=== PATIENT | female | born 2005 | race Caucasian/White ===

== ENCOUNTER 2025-01-26 14:32 | Outpatient (AMB) | payer MEDICAID, SELFPAY ==
--- NOTE | 2025-01-26 14:47 | OBCLNT_ITS ---
Vital Signs 01/26/25 15:05 Height 1.63 m Height Method Stated Weight 88.677 kg Weight Measurement Method Standing Scale BMI 33.5 BP 112/73 Blood Pressure Source Automatic Cuff Blood Pressure Location Left Upper Arm Position Sitting Respiration 16 Pulse 79 Pulse Source Monitor Temp 98.1 F Temp Source Oral Pulse Oximetry (%) 98 Oxygen Delivery Method Room Air Allergies/Home Meds Allergies & Medications Allergies No Known Allergies Allergy (Verified 01/26/25 15:06) Medication Reconciliation vits no.126-ferrous fum 28 mg iron-folic acid 800 mcg tablet (Classic ) 1 tab PO DAILY 90 days #90 tabs 01/26/25 [Rx] Intake Visit Data Collection New Patient or Established: Established Patient (seen at [facility] within 3 years) Reason for Visit:: INITIAL CARE Seen by Clinical Staff ONLY (RN/MA): No 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 Pipe Out Worker's name/title: ANT ROSSI Do You Feel Safe at Home: Yes Authorities Contacted: N/A PCP or OBGYN visit in last 3 months: Yes Hx Now: Yes Are you currently on any form of Control: No Last menstrual period: 07/02/24 Pain Present Currently: No Pain Scale Used: Tony-Carter/Numerical Pain scale:: 0 Smoking Status Smoking Status: Never smoker Immunizations Flu Vaccine in the Last 12 Months: No Flu Vaccine Exclusion Criteria: No Exclusion Criteria Questionnaires Covid-19 Vaccine Questionnaire Has patient been vacinated for Covid-19 Have you been vacinated for Covid-19: Yes PHQ-9 PHQ-2 Over the last 2 weeks, how often have you been bothered by any of the following problems? 1. Little interest or pleasure in doing things: not at all 2. Feeling down, depressed, or hopeless: not at all Total score: 0 PHQ-9 3. Trouble falling or staying asleep, or sleeping too much: Not at all 4. Feeling tired or having little energy: Not at all 5. Poor appetite or overeating: Not at all 6. Feeling bad about yourself - or that you are a failure or have let yourself or your family down: Not at all 7. Trouble concentrating on things, such as reading the newspaper or watching television: Not at all 8. Moving or speaking so slowly that other people could have noticed? - Or the opposite - being so fidgety or restless that you have been moving around a lot more than usual: not at all 9. Thoughts that you would be better off or of hurting yourself in some way: Not at all Total score: 0 Source: Developed by Drs. Armando Colon, Maryam Rosen, Ha Hogue and colleagues, with an educational faiza from [employer]. Depression screen completed yes Social History Living Situation History Marital Status: Life Partner Lives With: Family Housing: House Tobacco History Smoking Status: Never smoker Second Hand Smoke Exposure: No Alcohol History Alcohol Intake: Never Domestic Abuse History Do You Feel Safe at Home: Yes OB Initial Visit OB Flowsheet OB Flowsheet Initial Weight: Not Recorded Date -?-?-?-?-?-?-?-?-?-?-?-?- EGA Weight BP Alb Glu CTX Pres Fundal ht FHR Mov Dilation Station Effacement Hx Notes Visit Note 01/26/25 -?-?-?-?-?-?-?-?-?-?-?-?- 30w 0d 88.677 kg 112/73 absent unknown 29 147 active Menstrual History Menstrual reliability: definite Flow: normal Menstrual regularity: regular Monthly: Yes Age at menarche: 10 On control pills at conception: No Associated symptoms (LMP): Reports nausea OB History : 1 # of Living Children: 0 Infection History & Risk Evaluation History of STDs: none Genetic Screening & History Genetic Screening/Teratology Counseling - Includes patient, baby's father, or anyone in either family with: 1. Patient's age 35 years or older as of estimated date of delivery: No 2. Thalassemia (Japanese, Tunisian, Mediterranean, or Background); MCV less than 80: No 3. Neural Tube Defect (Meningomyelocele, Spina Bifida, or Anencephaly): No 4. Congenital Heart Defect: No 5. Down Syndrome: No 6. [place]-Sachs (Ashkenazi Zoroastrianism, Cajun, Vietnamese [place]): No 7. Rosalio Disease (Ashkenazi Zoroastrianism): No 8. Familial Dysautonomia (Ashkenazi Zoroastrianism): No 9. Sickle Cell Disease or Trait (): No 10. Hemophilia or other blood disorders: No 11. Muscular Dystrophy: No 12. Cystic Fibrosis: No 13. Nitesh's Chorea: No 14. Mental Retardation/Autism: No 15. Other inherited genetic or chromosomal disorder: No 16. Maternal Metabolic Disorder (EG,TYPE 1 Diabetes, PKU): No 17. Patient or baby's father had a child with defects not listed above: No 18. Recurrent loss or a stillbirth: No 19. Medications (including supplements, vitamins, herbs or otc drugs)/illicit/recreational drugs/alcohol since last menstrual period: No 20. Any other: No Infection History 1. Live with someone with TB or exposed to TB: No 2. Rash or viral illness since last menstrual period: No 3. Hepatitis B,C: No Other (see comments) Source: [employer] Review of Systems Review of Systems Systems Reviewed: All systems reviewed, normal except as documented Gastrointestinal Gastrointestinal: Reports nausea Exam Narrative Physical exam: Alert and oriented x 3 no shortness of breath Pain no chest pain no palpitations Chest clear bilaterally no additional sounds, no wheezing no rales CVS regular rate and rhythm No CVAT Abdomen nontender, normal bowel sounds No guarding no rigidity No hernias Results Objective Laboratory: A positive on 12/18/2024 RPR negative /HbsAg negative GC and CT negative Rubella immune CF negative TSH wnl One hor GTT is normal Hb is 11.1 Imaging: ordered Ob US > 14 weeks Office Procedures OBC Clinic LOC & Office Proc's Nursing/Assessment Patient Status: Initial/New Patient OB Clinic Nursing Assessment: Medication Reconciliation, Update PMH in EMR and Vital Signs OB Clinic Coordination of Care: Complex Care and Chronic Disease 1-5, Consent,records obtained, informed consent, Education Simp Pt/Fam, 1 Ins Authorization, Lab and Imaging orders, Results/Orders obtained and Staff clarify orders Special Needs: Heart tones New Patient Charge New Patient Point Assignment: [id number] New Patient Point Charge: PAINT SUPERVISOR Level 4 ([id number]) Assessment & Plan Diagnosis / Problem List (1) : Status: Acute Qualifiers: Weeks of gestation: 30 weeks Qualified Code(s): Z3A.30 - 30 weeks ge station of (2) Insufficient care: Status: Acute Qualifiers: Trimester: unspecified trimester Qualified Code(s): O09.30 - Supervision of with insufficient care, unspecified trimester Plan Ob Us ordered . genetic screen and carrier testing ordered and follow up in 2 weeks /PNV ordered . kick count and labor precations given
[2025-01-26 15:05] VITALS: BP 112/73; PULSE 79; RESP 16; TEMP 36.7; O2SAT 98; BMI 33.5
== END 2025-01-26 15:28 | disposition home or self-care (01) ==
LOC: HODSOBC 14:32
PROVIDERS: PCP Nurse Practitioner; Referring Provider Nurse Practitioner; Supervising Provider Obstetrics & Gynecology; Visit Provider Obstetrics & Gynecology
DX: O09.33 Supervision of pregnancy with insufficient antenatal care, third trimester (principal); Z3A.30 30 weeks gestation of pregnancy
CPT/HCPCS: 99204; G0463

== ENCOUNTER 2025-02-05 12:15 | Observation (INO) | payer MEDICAID, SELFPAY ==
[2025-02-05] VITALS (21 sets, daily range): BP systolic 111; BP diastolic 74; PULSE 70–93; RESP 18–99; TEMP 36.7; O2SAT 98–100; BMI 33.7
--- NOTE | 2025-02-05 13:11 | XR_ITS ---
Examination: Complete OB ultrasound greater than 14 weeks Date and time of exam: February 05, 2025, 1417 hours INDICATIONS: Onset vaginal bleeding today Findings: Viable intrauterine single fetus with single amniotic sac presentation cephalic Cardiac motion 144 bpm Placenta anterior grade 1 no placental abruption Umbilical cord insertion seen Amniotic fluid index 9.2 cm Cervix 2.8 cm close Right ovary obscured by bowel gas Left ovary 2.7 cm arterial flow. Composite estimated gestational age based on BPD, head circumference, abdominal circumference, femur length is 29 weeks 5 days Estimated weight 1410 g. Survey of intracranial anatomy, spinal anatomy, abdominal anatomy, four-chamber heart performed with no abnormalities identified. Impression: Viable intrauterine gestation in cephalic presentation Placenta anterior grade 1 no abruption.
== END 2025-02-05 15:30 | disposition home or self-care (01) ==
PROVIDERS: Admitting Provider Obstetrics & Gynecology; Visit Provider Obstetrics & Gynecology
DX: O46.93 Antepartum hemorrhage, unspecified, third trimester (principal); O99.891 Other specified diseases and conditions complicating pregnancy; M54.9 Dorsalgia, unspecified; Z3A.29 29 weeks gestation of pregnancy
CPT/HCPCS: 59025; 59899; 76805

== ENCOUNTER 2025-02-26 13:37 | Outpatient (AMB) | payer MEDICAID, SELFPAY ==
[2025-02-26 14:41] VITALS: BP 103/83; PULSE 91; RESP 18; TEMP 36.2; O2SAT 98
--- NOTE | 2025-02-26 14:41 | OBCLNT_ITS ---
Vital Signs 02/26/25 14:41 Weight 90.492 kg Weight Measurement Method Standing Scale BP 103/83 Blood Pressure Source Automatic Cuff Blood Pressure Location Left Upper Arm Position Sitting Respiration 18 Pulse 91 Pulse Source Monitor Temp 97.2 F Temp Source Oral Pulse Oximetry (%) 98 Oxygen Delivery Method Room Air Allergies/Home Meds Allergies & Medications Allergies No Known Allergies Allergy (Verified 02/26/25 14:42) Medication Reconciliation vits no.126-ferrous fum 28 mg iron-folic acid 800 mcg tablet (Classic ) 1 tab PO DAILY 90 days #90 tabs 01/26/25 [Rx Confirmed 02/26/25] acetaminophen 500 mg tablet mg 02/05/25 [History Confirmed 02/26/25] Held on 02/05/25. Instructions: HOLD folic acid 1 mg tablet 1 mg PO QDAY 02/05/25 [History Confirmed 02/26/25] Immunizations Immunizations Flu Vaccine in the Last 12 Months: No Flu Vaccine Exclusion Criteria: No Exclusion Criteria Care OB Visit Log OB Flowsheet Initial Weight: Not Recorded Date -?-?-?-?-?-?-?-?-?-?-?-?- EGA Weight BP Alb Glu CTX Pres Fundal ht FHR Mov Dilation Station Effacement Hx Notes Visit Note 01/26/25 -?-?-?-?-?-?-?-?-?-?-?-?- 30w 0d 88.677 kg 112/73 absent unknown 29 147 active 02/26/25 -?-?-?-?-?-?-?-?-?-?-?-?- 34w 3d 90.492 kg 103/83 absent cephalic 34 144 active JIM Calculator Estimated Delivery Date Method Current WG Current Estimate 04/06/25 LMP (Certain) 34w 5d Notes Visit Date: 02/26/25 Last Updated by: Miya Cantu MD labs done in December 21/2025 c/w GTT screen and CBC are normal /On exam she is 29 cm and normal ob exam She was in [facility] 3 weeks ago with bleeding / would like to start disability / approved disability /NIPT c/w female gender and negative / disability from 02/27/2025 and return to work from 05/23/2025 flu vaccine today/ R/B and options discussed with patient / would like to proceed Visit Date: 01/26/25 Last Updated by: Miya Cantu MD 19 years old from [facility] at 30 weeks today based on LMP of 06/30/2024 she had an US in [place] and no report available , sounds like done for gender reveal labs done in December 21/2025 c/w GTT screen and CBC are normal /On exam she is 29 cm and normal ob exam plan to order NIPT and carrier screen and US vitamins called in educated on vaccines recommend Flu and T dap kick count and follow up in 2 weeks she is A positive and RPR negative and HbsAg negative HIV negative / Rubella immune CF screen negative GC and CT negative Plan NIPT/RPR / SMA carrier screen / gender chromosomal analysis Too Late for AFP order pills follow up in 2 weeks Office Procedures OBC Clinic LOC & Office Proc's Nursing/Assessment Patient Status: Established Patient OB Clinic Nursing Assessment: Medication Reconciliation, Update PMH in EMR and Vital Signs OB Clinic Coordination of Care: Consent,records obtained, informed consent, Education Simp Pt/Fam, Lab and Imaging orders, Results/Orders obtained and Staff clarify orders Special Needs: Heart tones Established Patient Charge Established Patient Point Assignment: 110 Established Patient Point Charge: EP Level 3 (80-115) Immunizations flu vac ts (6mos up)-PF 45 mcg(15mcg x3)/0.5 mL IM syringe Performing Provider: Miya Cantu MD Performing Location: [facility] OFFICER Clinic Administered by: Wendy Avila MA on 02/26/25 15:52 Dose Route Admin Location Dispensed Lot Number Expiration Date Pack age [facility] Accounting Representative 0.5 mL IM Left Deltoid 0.5 mL [id number] 10/05/25 [id number] appiris VIS Given Date VIS Provided VIS Publication Date 02/26/25 Single Vaccine 24 Eligibility Eligibility Date Funding Source Public Non-[facility] Assessment & Plan Diagnosis / Problem List (1) Antepartum bleeding: Status: Acute Assessment and Plan: start disability from 02/27/2025 (2) Insufficient care: Status: Acute Qualifiers: Trimester: unspecified trimester Qualified Code(s): O09.30 - Supervision of with insufficient care, unspecified trimester Assessment and Plan: Flu vaccine today (3) : Status: Acute Qualifiers: Weeks of gestation: 30 weeks Qualified Code(s): Z3A.30 - 30 weeks gestation of Plan: follow up in [address] [facility] [address] [place] [address] [place] [facility] Report Signed Patient: TRISTEN RICHARDS Record#: [id number] Birthdate: 2005 Age/Sex: 19 / F Location: [facility] [id number] Attending Dr: Deonte Bernal MD Ordering Physician: Deonte Bernal MD Date of Service: 02/05/25 Procedure(s): US OB >= 14 weeks Fetus Accession Number(s): [id number] cc: Daren Gonzales MD; Deonte Bernal MD; NO PRIMARY/FAMILY,PHYSICIAN~ Examination: Complete OB ultrasound greater than 14 weeks Date and time of exam: February 05, 2025, 1417 hours INDICATIONS: Onset vaginal bleeding today Findings: Viable intrauterine single fetus with single amniotic sac presentation cephalic Cardiac motion 144 bpm Placenta anterior grade 1 no placental abruption Umbilical cord insertion seen Amniotic fluid index 9.2 cm Cervix 2.8 cm close Right ovary obscured by bowel gas Left ovary 2.7 cm arterial flow. Composite estimated gestational age based on BPD, head circumference, abdominal circumference, femur length is 29 weeks 5 days Estimated weight 1410 g. Survey of intracranial anatomy, spinal anatomy, abdominal anatomy, four-chamber heart performed with no abnormalities identified. Impression: Viable intrauterine gestation in cephalic presentation Placenta anterior grade 1 no abruption. Additional Plan labs done in December 21/2025 c/w GTT screen and CBC are normal /On exam she is 29 cm and normal ob exam She was in [facility] 3 weeks ago with bleeding / would like to start disability / approved disability /NIPT c/w female gender and negative / disability from 02/27/2025 and return to work from 05/23/2025 flu vaccine today/ R/B and options discussed with patient / would like to proceed 19 years old at 34.3 weeks today Follow Up: 2 Weeks
== END 2025-02-26 15:33 | disposition home or self-care (01) ==
LOC: HODSOBC 13:37
PROVIDERS: Supervising Provider Obstetrics & Gynecology; Visit Provider Obstetrics & Gynecology
DX: O09.893 Supervision of other high risk pregnancies, third trimester (principal); O46.93 Antepartum hemorrhage, unspecified, third trimester; O09.33 Supervision of pregnancy with insufficient antenatal care, third trimester; Z3A.34 34 weeks gestation of pregnancy; Z23 Encounter for immunization
CPT/HCPCS: 90471; 90686; 99213; G0463; J9060

== ENCOUNTER 2025-03-16 09:42 | Outpatient (AMB) | payer MEDICAID, SELFPAY ==
--- NOTE | 2025-03-16 09:52 | AMB.OBPNC ---
Vital Signs 03/16/25 09:53 Height 1.63 m Height Method Stated Weight 93.157 kg Weight Measurement Method Standing Scale BMI 35.0 BP 124/73 Blood Pressure Source Automatic Cuff Blood Pressure Location Right Upper Arm Position Sitting Respiration 18 Pulse 82 Pulse Source Monitor Temp 97.8 F Temp Source Temporal Artery Scan Pulse Oximetry (%) 98 Oxygen Delivery Method Room Air Allergies/Home Meds Allergies & Medications Allergies No Known Allergies Allergy (Verified 03/16/25 09:53) Medication Reconciliation vits no.126-ferrous fum 28 mg iron-folic acid 800 mcg tablet (Classic ) 1 tab PO DAILY 90 days #90 tabs 01/26/25 [Rx Confirmed 03/16/25] acetaminophen 500 mg tablet mg 02/05/25 [History Confirmed 03/16/25] Held on 02/05/25. Instructions: HOLD folic acid 1 mg tablet 1 mg PO QDAY 02/05/25 [History Confirmed 03/16/25] Immunizations Immunizations Flu Vaccine in the Last 12 Months: Yes Flu Vaccine Exclusion Criteria: Already Received Care OB Visit Log OB Flowsheet Initial Weight: Not Recorded Date <del>?</del> EGA Weight BP Alb Glu CTX Pres Fundal ht FHR Mov Dilation Station Effacement Hx Notes Visit Note 01/26/25 <del>?</del> 30w 0d 88.677 kg 112/73 absent unknown 29 147 active 02/26/25 <del>?</del> 34w 3d 90.492 kg 103/83 absent cephalic 34 144 active 03/16/25 <del>?</del> 37w 0d 93.157 kg 124/73 absent cephalic 37 144 active 0 -2 30 JIM Calculator Estimated Delivery Date Method Current WG Current Estimate 04/06/25 LMP (Certain) 38w 2d Notes Visit Date: 03/16/25 Last Updated by: Miya Cantu MD GBS today / labor precautions and follow up in 1 week Visit Date: 02/26/25 Last Updated by: Miya Cantu MD labs done in December 21/2025 c/w GTT screen and CBC are normal /On exam she is 29 cm and normal ob exam She was in [facility] 3 weeks ago with bleeding / would like to start disability / approved disability /NIPT c/w female gender and negative / disability from 02/27/2025 and return to work from 05/23/2025 flu vaccine today/ R/B and options discussed with patient / would like to proceed Visit Date: 01/26/25 Last Updated by: Miya Cantu MD 19 years old from [facility] at 30 weeks today based on LMP of 06/30/2024 she had an US in [place] and no report available , sounds like done for gender reveal labs done in December 21/2025 c/w GTT screen and CBC are normal /On exam she is 29 cm and normal ob exam plan to order NIPT and carrier screen and US vitamins called in educated on vaccines recommend Flu and T dap kick count and follow up in 2 weeks she is A positive and RPR negative and HbsAg negative HIV negative / Rubella immune CF screen negative GC and CT negative Plan NIPT/RPR / SMA carrier screen / gender chromosomal analysis Too Late for AFP order pills follow up in 2 weeks Office Procedures OBC Clinic LOC & Office Proc's Nursing/Assessment Patient Status: Established Patient OB Clinic Nursing Assessment: Medication Reconciliation, Update PMH in EMR and Vital Signs OB Clinic Coordination of Care: Complex Care and Chronic Disease 1-5, Education Complex Pt/Fam, Consent,records obtained, informed consent, Lab and Imaging orders, Results/Orders obtained and Staff clarify orders Special Needs: Heart tones Miscellaneous Interventions: Culture Specimen Collection Established Patient Charge Established Patient Point Assignment: 155 Established Patient Point Charge: EP Level 4 (120-155) Assessment & Plan Diagnosis / Problem List (1) Insufficient care: Status: Acute Qualifiers: Trimester: unspecified trimester Qualified Code(s): O09.30 - Supervision of with insufficient care, unspecified trimester (2) : Status: Acute Qualifiers: Weeks of gestation: 30 weeks Qualified Code(s): Z3A.30 - 30 weeks gestation of Plan: 37 weeks (3) Antepartum bleeding: Status: Acute Plan: no more Additional Assessment GBS done Additional Plan 1 week Follow Up: 1 Week
[2025-03-16 09:53] VITALS: BP 124/73; PULSE 82; RESP 18; TEMP 36.6; O2SAT 98; BMI 35.0
== END 2025-03-16 10:59 | disposition home or self-care (01) ==
LOC: HODSOBC 09:42
PROVIDERS: Supervising Provider Obstetrics & Gynecology; Visit Provider Obstetrics & Gynecology
DX: O09.33 Supervision of pregnancy with insufficient antenatal care, third trimester (principal); O09.893 Supervision of other high risk pregnancies, third trimester; O46.93 Antepartum hemorrhage, unspecified, third trimester; Z36.85 Encounter for antenatal screening for Streptococcus B; Z3A.37 37 weeks gestation of pregnancy
CPT/HCPCS: 99214; G0463

== ENCOUNTER 2025-04-06 09:56 | Outpatient (AMB) | payer MEDICAID, SELFPAY ==
[2025-04-06 10:29] VITALS: BP 119/78; PULSE 79; RESP 16; TEMP 36.6; O2SAT 98; BMI 35.9
--- NOTE | 2025-04-06 10:29 | OBCLNT_ITS ---
Vital Signs 04/06/25 10:29 Height 1.63 m Height Method Stated Weight 95.368 kg Weight Measurement Method Standing Scale BMI 35.9 BP 119/78 Blood Pressure Source Automatic Cuff Blood Pressure Location Left Upper Arm Position Sitting Respiration 16 Pulse 79 Pulse Source Monitor Temp 97.9 F Temp Source Oral Pulse Oximetry (%) 98 Oxygen Delivery Method Room Air Allergies/Home Meds Allergies & Medications Allergies No Known Allergies Allergy (Verified 04/06/25 10:30) Medication Reconciliation vits no.126-ferrous fum 28 mg iron-folic acid 800 mcg tablet (Classic ) 1 tab PO DAILY 90 days #90 tabs 01/26/25 [Rx Confirmed 04/06/25] folic acid 1 mg tablet 1 mg PO QDAY 02/05/25 [History Confirmed 04/06/25] Immunizations Immunizations Flu Vaccine in the Last 12 Months: Yes Date of most recent flu vaccination: 02/26/25 Flu Vaccine Exclusion Criteria: Already Received Care OB Visit Log OB Flowsheet Initial Weight: Not Recorded Date -?-?-?-?-?-?-?-?-?-?-?-?- EGA Weight BP Alb Glu CTX Pres Fundal ht FHR Mov Dilation Station Effacement Hx Notes Visit Note 01/26/25 -?-?-?-?-?-?-?-?-?--?-?-?- 28w 2d 88.677 kg 112/73 absent unknown 29 147 active 02/26/25 -?-?-?-?-?-?-?-?-?-?-?-?- 32w 5d 90.492 kg 103/83 absent cephalic 34 144 active 03/16/25 -?-?-?-?-?-?-?-?-?-?-?-?- 35w 2d 93.157 kg 124/73 absent cephalic 37 144 active 0 -2 30 04/06/25 -?-?-?-?-?-?-?-?-?-?-?-?- 38w 2d 95.368 kg 119/78 absent cephalic 38 146 active 1 -2 30 JIM Calculator Estimated Delivery Date Method Current WG Current Estimate 04/18/25 Ultrasound #1 38w 2d Other Estimates 04/06/25 LMP (Certain) 40w 0d Notes Visit Date: 04/06/25 Last Updated by: Miya Cantu MD 19 years old at 38.2 weeks today by US on 02/05/2025 at 29.5 weeks / late and insufficient care / plan follow up in 1 week / GBS done 03/16/2025 and is negative / labor precautions and KICK count / Follow up in 1 week bedside uS today shows breathing and movement , Fluid pocket > 6 cm , Vertex and tone present Visit Date: 03/16/25 Last Updated by: Miya Cantu MD GBS today / labor precautions and follow up in 1 week Visit Date: 02/26/25 Last Updated by: Miya Cantu MD labs done in December 21/2025 c/w GTT screen and CBC are normal /On exam she is 29 cm and normal ob exam She was in [facility] 3 weeks ago with bleeding / would like to start disability / approved disability /NIPT c/w female gender and negative / disability from 02/27/2025 and return to work from 05/23/2025 flu vaccine today/ R/B and options discussed with patient / would like to proceed Visit Date: 01/26/25 Last Updated by: Miya Cantu MD 19 years old from [facility] at 30 weeks today based on LMP of 06/30/2024 she had an US in [place] and no report available , sounds like done for gender reveal labs done in December 21/2025 c/w GTT screen and CBC are normal /On exam she is 29 cm and normal ob exam plan to order NIPT and carrier screen and US vitamins called in educated on vaccines recommend Flu and T dap kick count and follow up in 2 weeks she is A positive and RPR negative and HbsAg negative HIV negative / Rubella immune CF screen negative GC and CT negative Plan NIPT/RPR / SMA carrier screen / gender chromosomal analysis Too Late for AFP order pills follow up in 2 weeks Office Procedures OBC Clinic LOC & Office Proc's Nursing/Assessment Patient Status: Established Patient OB Clinic Nursing Assessment: Medication Reconciliation, Update PMH in EMR and Vital Signs OB Clinic Coordination of Care: Complex Care and Chronic Disease 1-5, Consent,records obtained, informed consent, Education Simp Pt/Fam, 1 Ins Authorization, Lab and Imaging orders, Results/Orders obtained and Staff clarify orders Special Needs: Heart tones Miscellaneous Interventions: Pelvic no cultures Established Patient Charge Established Patient Point Assignment: 160 Established Patient Point Charge: EP Level 5 (160-above) Assessment & Plan Diagnosis / Problem List (1) Insufficient care: Status: Acute Qualifiers: Trimester: unspecified trimester Qualified Code(s): O09.30 - Supervision of with insufficient care, unspecified trimester Plan: dating by objective criteria made her 38.2 weeks today (2) : Status: Acute Qualifiers: Weeks of gestation: 30 weeks Qualified Code(s): Z3A.30 - 30 weeks gestation of Assessment and Plan: weekly follow up and kick count advised / labor precautions given Additional Assessment follow up weekly / labor precautions / 38.2 weeks by third trimester US
== END 2025-04-06 11:02 | disposition home or self-care (01) ==
PROVIDERS: Supervising Provider Obstetrics & Gynecology; Visit Provider Obstetrics & Gynecology
DX: O09.33 Supervision of pregnancy with insufficient antenatal care, third trimester (principal); Z3A.38 38 weeks gestation of pregnancy
CPT/HCPCS: 99215; G0463